=== PATIENT | female | born 1990 | race African-American/Black ===

== ENCOUNTER 2017-05-08 03:29 | Emergency (ER) | payer BC ==
[2017-05-08] MEDS ORDERED: ACETAMINOPHEN 325 MG TABLET PO ONE (04:00)
--- NOTE | 2017-05-08 04:01 | ER Document Report ---
ED GI/ - General Chief Complaint: Abdominal Pain Stated Complaint: ABDOMINAL PAIN Time Seen by Provider: 05/08/17 03:54 Notes: Patient is a 26-year-old female who comes emergency department for chief complaint of lower abdominal cramping and vaginal bleeding that started tonight. She is at about 5-6 weeks gestation by last menstrual period. She had confirmation with her primary care that she is . She denies flank pain, vomiting, fever, vaginal discharge otherwise. She denies any surgeries or daily medications. at bedside. TRAVEL OUTSIDE OF THE [place] IN LAST 30 DAYS: No - Related Data Allergies/Adverse Reactions: No Known Allergies Allergy (Unverified 05/08/17 03:36) Past Medical History - General Information source: Patient, Relative - Social History Smoking Status: Never Smoker Drug Abuse: None Lives with: Family Family History: Reviewed & Not Pertinent Patient has suicidal ideation: No Patient has homicidal ideation: No - Medical History Medical History: Negative Renal/ Medical History: Denies: Hx Peritoneal Dialysis Surgical Hx: Negative - Immunizations Immunizations up to date: Yes Hx Diphtheria, Pertussis, Tetanus Vaccination: Yes Review of Systems - Review of Systems Constitutional: No symptoms reported EENT: No symptoms reported Cardiovascular: No symptoms reported Respiratory: No symptoms reported Gastrointestinal: See HPI Genitourinary: See HPI Female Genitourinary: See HPI Musculoskeletal: No symptoms reported Skin: No symptoms reported Hematologic/Lymphatic: No symptoms reported Neurological/Psychological: No symptoms reported Physical Exam - Vital signs Vitals: Temp Pulse Resp BP Pulse Ox 98.4 F 104 H 20 138/96 H 99 05/08/17 03:30 05/08/17 03:30 05/08/17 03:30 05/08/17 03:30 05/08/17 03:30 Interpretation: Normal - General General appearance: Appears well, Alert, Anxious In distress: None - HEENT Head: Normocephalic, Atraumatic Eyes: Normal Pupils: PERRL - Respiratory Respiratory status: No respiratory distress Chest status: Nontender Breath sounds: Normal Chest palpation: Normal - Cardiovascular Rhythm: Regular. No: Tachycardia - No tachycardia on my exam Heart sounds: Normal auscultation, S1 appreciated, S2 appreciated Murmur: No - Abdominal Inspection: Normal Distension: No distension Bowel sounds: Normal Tenderness: Tender - There is mild tenderness in the lower abdomen on both sides , upper abdomen is soft and benign Organomegaly: No organomegaly - Back Back: Normal, Nontender. No: CVA tenderness - Extremities General upper extremity: Normal inspection, Nontender, Normal color, Normal ROM , Normal temperature General lower extremity: Normal inspection, Nontender, Normal color, Normal ROM , Normal temperature, Normal weight bearing. No: Severiano's sign - Neurological Neuro grossly intact: Yes Cognition: Normal Orientation: AAOx4 Vanda Coma Scale Eye Opening: Spontaneous Vanda Coma Scale Verbal: Oriented [place] Coma Scale Motor: Obeys Commands Vanda Coma Scale Total: 15 Speech: Normal Motor strength normal: LUE, RUE, LLE, RLE Sensory: Normal - Psychological Associated symptoms: Normal affect, Normal mood, Anxious - Skin Skin Temperature: Warm Skin Moisture: Dry Skin Color: Normal Course - Re-evaluation Re-evalutation: No leukocytosis, no tachycardia on my exam, no hypotension or fever. Generalized mild lower abdominal tenderness on exam. CBC shows mild anemia but no leukocytosis, hCG is elevated, urine is unremarkable. RhoGam is not indicated. Ultrasound showing living IUP with low heart rate, subchorionic bleed, no other abnormalities. Cervix is closed. Patient is not currently bleeding on my reexamination. Discussed threatened . Discussed in detail, discussed return precautions, PASTE WORKER follow-up. Patient and had a lot of questions, I answered all questions, they stated understanding and gratefulness. - Vital Signs Vital signs: Temp Pulse Resp BP Pulse Ox 98.4 F 104 H 20 138/96 H 99 05/08/17 03:30 05/08/17 03:30 05/08/17 03:30 05/08/17 03:30 05/08/17 03:30 - Laboratory Result Diagrams: 05/08/17 04:14 Laboratory results interpreted by me: 05/08/17 05/08/17 05/08/17 04:05 04:14 04:14 RBC 3.62 L Hgb 10.5 L Hct 31.8 L RDW 18.0 H Beta HCG, Quant 3268.90 H Urine Blood LARGE H Discharge - Discharge Clinical Impression: Vaginal bleeding in patient at less than 20 weeks gestation Condition: Stable Disposition: HOME, SELF-CARE Additional Instructions: Your ultrasound shows a in the uterus. However there is a subchorionic bleed and the heart rate is low. This is a threatened and it is unclear if this will progress or if you will miscarry. Your blood type is A positive. You do not need Rhogam. I recommend no significant activity, no running, jumping, lifting, sexual intercourse. I recommend simply walking as needed and mainly resting. Take Tylenol as needed for pain. Follow-up closely with PASTE WORKER. Return to emergency department for any concerning symptoms including heavy bleeding or dizziness, or if something is not right. Threatened Miscarriage You have been evaluated for a possible miscarriage. At this time, there is no indication that a miscarriage will occur. Most women with your symptoms will go on to have a perfectly normal baby. However, careful observation will be necessary. A miscarriage occurs when the fetus is abnormal. There is no medicine or treatment for it. You should rest in bed until the symptoms have resolved. Do not douche or have sex for at least a week, or until OK'd by the doctor. Call the doctor or return for re-examination if there is an increase in bleeding or cramping, or passage of tissue. Forms: Return to Work, Treatment of Relative/Child Referrals: [facility] [Provider Group] - Follow up tomorrow
[2017-05-08 04:22] LABS: APPEARANCE,URINE CLEAR; BILIRUBIN,URINE NEGATIVE (NEGATIVE); GLUCOSE, URINE NEGATIVE (NEGATIVE); KETONES,URINE NEGATIVE (NEGATIVE); LEUKOCYTE ESTERASE,URINE NEGATIVE (NEGATIVE); NITRITE,URINE NEGATIVE (NEGATIVE); PROTEIN,URINE NEGATIVE (NEGATIVE); URINE SPECIFIC GRAVITY 1.009; UROBILINOGEN,URINE NEGATIVE mg/dL (<2.0)
[2017-05-08 04:27] LABS: ABSOLUTE EOSINOPHILS # (AUTO) 0.1 10^3/uL (0.0-0.6); ABSOLUTE LYMPHOCYTES (AUTO) 1.4 10^3/uL (0.5-4.7); ABSOLUTE MONOCYTES (AUTO) 0.4 10^3/uL (0.1-1.4); ABSOLUTE NEUT (AUTO) 3.9 10^3/uL (1.7-8.2); BASOPHILS % (AUTO) 0.5 % (0-2); HEMATOCRIT 31.8 % (36.0-47.0); HEMOGLOBIN 10.5 g/dL (12.0-15.5); HGB HCT DIFFERENCE -0.3; LYMPHOCYTES % (AUTO) 23.9 % (13-45); MEAN CORPUSCULAR HEMOGLOBIN 29.1 pg (27.0-33.4); MEAN CORPUSCULAR HGB CONC 33.2 g/dL (32.0-36.0); MEAN CORPUSCULAR VOLUME 88 fl (80-97); MONOCYTES % (AUTO) 7.6 % (3-13); RED BLOOD COUNT 3.62 10^6/uL (3.72-5.28); WHITE BLOOD COUNT 5.9 10^3/uL (4.0-10.5)
--- NOTE | 2017-05-08 05:44 | RADIOLOGY REPORT (SQ) ---
EXAM DESCRIPTION: U/S OB TRANSVAG W/DOPPLER COMPLETED DATE/TIME: 05/08/2017 5:27 am REASON FOR STUDY: abd pain, vag bleeding, 1st trimester COMPARISON: None. TECHNIQUE: Transvaginal and transabdominal static and realtime grayscale images acquired of the pelv is. Additional selected spectral and color Doppler images recorded. All images stored on PACs. [facility] LIMITATIONS: None. FINDINGS: FETUS: Living intrauterine . EGA: 5 weeks 6 days ADA: 01/02/2018 FHR: 89 beats per minute beats per minute. SUBCHORIONIC BLEED: Yes. SIZE OF BLEED: 1.6 by 1.5 x 0.4 cm. UTERUS: No masses. No anomalies. CERVICAL LENGTH: 2.9 cm. Closed. RIGHT ADNEXA: Normal ovary with normal vascular flow. No adnexal free fluid. No adnexal masses. 2.5 cm. LEFT ADNEXA: Normal ovary with normal vascular flow. No adnexal free fluid. No adnexal masses. 2.4 cm. FREE FLUID: None. OTHER: No other significant finding. IMPRESSION: LIVING INTRAUTERINE , at-risk. 1.6 cm subchorionic hematoma. Consider 48-72 h our laboratory/sonographic surveillance as clinically warranted. EGA 5 weeks 6 days. Trimester of : First - 0 to 13 weeks. TECHNICAL DOCUMENTATION: JOB ID: [id number] [employer]- All Rights Reserved
[2017-05-08 07:03] VITALS: BP 128/80
== END 2017-05-08 06:40 | disposition home or self-care (01) ==
LOC: ER 03:29
DX: O46.91 Antepartum hemorrhage, unspecified, first trimester (principal); Z3A.01 Less than 8 weeks gestation of pregnancy
CPT/HCPCS: 36415; 76817; 81001; 84702; 85025; 86900; 86901; 93976; 99284

== ENCOUNTER 2019-02-19 08:09 | Emergency (ER) | payer SELFPAY ==
--- NOTE | 2019-02-19 09:35 | ER Document Report ---
ED Medical Screen (RME) - General Chief Complaint: Vag Bleeding, +preg <12wks Stated Complaint: VAGINAL BLEEDING/ABDOMINAL CRAMPING Time Seen by Provider: 02/19/19 09:30 Primary Care Provider: LATA STEPHENSON MD [Primary Care Provider] - Follow up as needed Mode of Arrival: Ambulatory Information source: Patient TRAVEL OUTSIDE OF THE [place] IN LAST 30 DAYS: No - HPI Patient complains to provider of: PREG, BLEEDING Notes: 02/19/19 09:33 Patient here with complaints of being approximately 7 to 8 weeks and having vaginal bleeding. She is a G2, P0 with one prior miscarriage. Does complain of some lower abdominal cramping and tightness. She started having bleeding yesterday. No fevers. Exam Nontoxic, no distress. Lungs clear and equal throughout. Heart sounds normal. No CVA tenderness. No focal tenderness on limited triage abdominal exam. Plan Patient has a positive blood type according to blood bank history. CBC, CMP, quantitative hCG, transvaginal ultrasound. An initial examination was made on the patient as part of the triage process, and it was determined a more comprehensive evaluation was necessary. Initial labs were ordered and patient was transferred to another provider in the ED who assumed care and finished evaluation and plan. - Related Data Allergies/Adverse Reactions: No Known Allergies Allergy (Verified 02/19/19 08:11) Past Medical History Renal/ Medical History: Denies: Hx Peritoneal Dialysis - Immunizations Immunizations up to date: Yes Hx Diphtheria, Pertussis, Tetanus Vaccination: Yes Physical Exam - Vital signs Vitals: Temp Pulse Resp BP Pulse Ox 98.4 F 98 16 138/77 H 97 02/19/19 08:14 02/19/19 08:14 02/19/19 08:14 02/19/19 08:14 02/19/19 08:14 Course - Vital Signs Vital signs: Temp Pulse Resp BP Pulse Ox 98.4 F 98 16 138/77 H 97 02/19/19 08:14 02/19/19 08:14 02/19/19 08:14 02/19/19 08:14 02/19/19 08:14 Doctor's Discharge - Discharge Referrals: LATA STEPHENSON MD [Primary Care Provider] - Follow up as needed
[2019-02-19 09:53] LABS: ABSOLUTE BASOPHILS # (AUTO) 0.1 10^3/uL (0.0-0.2); ABSOLUTE LYMPHOCYTES (AUTO) 1.1 10^3/uL (0.5-4.7); ABSOLUTE MONOCYTES (AUTO) 0.3 10^3/uL (0.1-1.4); ABSOLUTE NEUT (AUTO) 2.7 10^3/uL (1.7-8.2); BASOPHILS % (AUTO) 1.3 % (0-2); EOSINOPHILS % (AUTO) 0.9 % (0-6); HEMATOCRIT 35.3 % (36.0-47.0); HEMOGLOBIN 11.6 g/dL (12.0-15.5); LYMPHOCYTES % (AUTO) 25.8 % (13-45); MEAN CORPUSCULAR HEMOGLOBIN 28.6 pg (27.0-33.4); MEAN CORPUSCULAR HGB CONC 32.8 g/dL (32.0-36.0); MEAN CORPUSCULAR VOLUME 87 fl (80-97); MONOCYTES % (AUTO) 7.9 % (3-13); PLATELET COUNT 278 10^3/uL (150-450); RED BLOOD COUNT 4.05 10^6/uL (3.72-5.28); RED CELL DISTRIBUTION WIDTH 19.9 % (11.5-14.0); SEGMENTED NEUTROPHILS % (AUTO) 64.1 % (42-78); TOTAL CELLS COUNTED % (AUTO) 100 %; WHITE BLOOD COUNT 4.3 10^3/uL (4.0-10.5)
[2019-02-19 09:56] LABS: APPEARANCE,URINE CLEAR; BILIRUBIN,URINE NEGATIVE (NEGATIVE); COLOR,URINE YELLOW; GLUCOSE, URINE NEGATIVE (NEGATIVE); KETONES,URINE NEGATIVE (NEGATIVE); LEUKOCYTE ESTERASE,URINE NEGATIVE (NEGATIVE); NITRITE,URINE NEGATIVE (NEGATIVE); PROTEIN,URINE NEGATIVE (NEGATIVE); URINE SPECIFIC GRAVITY 1.023; UROBILINOGEN,URINE NEGATIVE mg/dL (<2.0)
[2019-02-19 10:30] LABS: ALANINE AMINOTRANSFERASE 14 U/L (9-52); ALBUMIN 4.7 g/dL (3.5-5.0); ALKALINE PHOSPHATASE 46 U/L (38-126); ANION GAP 12 (5-19); ASPARTATE AMINO TRANSFERASE 23 U/L (14-36); BILIRUBIN,DIRECT 0.3 mg/dL (0.0-0.4); BILIRUBIN,TOTAL 0.4 mg/dL (0.2-1.3); BLOOD UREA NITROGEN 9 mg/dL (7-20); CARBON DIOXIDE 23 mmol/L (22-30); CHLORIDE 106 mmol/L (98-107); GLUCOSE 82 mg/dL (75-110); POTASSIUM 3.8 mmol/L (3.6-5.0); SODIUM 140.7 mmol/L (137-145); TOTAL PROTEIN 8.5 g/dL (6.3-8.2)
--- NOTE | 2019-02-19 12:03 | RADIOLOGY REPORT (SQ) ---
EXAM DESCRIPTION: U/S OB TRANSVAG W/DOPPLER COMPLETED DATE/TIME: 02/19/2019 11:45 am REASON FOR STUDY: PREG, VAG BLEEDING COMPARISON: None. TECHNIQUE: Transvaginal static and realtime grayscale images acquired of the pelvis. Additional nando cted spectral and color Doppler images recorded. All images stored on PACs. [facility],066 CLINICAL DATES: 7 weeks 6 days LIMITATIONS: None. FINDINGS: FETUS: Single Living intrauterine . ULTRASOUND EGA: 6 weeks 5 days ULTRASOUND ADA: 10/10/2019 EFW: Not applicable less than 20 weeks. CRL: 0.80 cm. FHR: 119 beats per minute. SURVEY: Too early to assess. AMNIOTIC FLUID: Adequate amount. PLACENTA: Not yet developed due to early gestation. SUBCHORIONIC BLEED: Yes. SIZE OF BLEED: 1.2 x 1.0 x 0.4 cm. UTERUS: No masses. No anomalies. CERVICAL LENGTH: 2.3 cm. Closed. RIGHT ADNEXA: Ovary not identified due to poor acoustical window. No adnexal free fluid. No adnexal masses. LEFT ADNEXA: Ovary not identified due to poor acoustical window. No adnexal free fluid. No adnexal masses. FREE FLUID: None. OTHER: There is a prominent yolk sac. This is measured at 6.9 mm. IMPRESSION: LIVING INTRAUTERINE . EGA 6 WEEKS 5 DAYS. THE YOLK SAC IS ENLARGED WHICH CAN BE ASSOCIATED WITH INCREASED RISK OF SPONTANEOUS . RECOMM END CLINICAL AND ULTRASOUND FOLLOW-UP. Trimester of : First - 0 to 13 weeks. TECHNICAL DOCUMENTATION: JOB ID: [id number]- All Rights Reserved Reading location - IP/workstation name: [email or web address]
[2019-02-19 12:45] VITALS: BP 130/90
--- NOTE | 2019-02-19 12:59 | ER Document Report ---
Entered by PINEDA JOLLY SCRIBE 02/19/19 1223 Acting as scribe for:CHANTELLE MERINO MD ED General - General Chief Complaint: Vag Bleeding, +preg <12wks Stated Complaint: VAGINAL BLEEDING/ABDOMINAL CRAMPING Time Seen by Provider: 02/19/19 09:30 Primary Care Provider: [facility] [Provider Group] - Follow up in 3-5 days (Call today to schedule an appointment.) Mode of Arrival: Ambulatory Notes: Patient is a 28-year-old female, approximately 8 weeks () presents to the emergency department complaining of vaginal bleeding onset this morning. Patient states she noticed brownish blood when wiping. She also complains of some light abdominal cramping. She denies any blood clots. Patient's LMP was December 24, 2018. Patient is taking vitamins. She is A+. TRAVEL OUTSIDE OF THE [place] IN LAST 30 DAYS: No - Related Data Allergies/Adverse Reactions: No Known Allergies Allergy (Verified 02/19/19 08:11) Past Medical History - General Information source: Patient Last Menstrual Period: 12-26-18 - Social History Smoking Status: Never Smoker Chew tobacco use (# tins/day): No Family History: Reviewed & Not Pertinent Patient has suicidal ideation: No Patient has homicidal ideation: No - Immunizations Immunizations up to date: Yes Hx Diphtheria, Pertussis, Tetanus Vaccination: Yes Review of Systems - Review of Systems Constitutional: No symptoms reported EENT: No symptoms reported Cardiovascular: No symptoms reported Respiratory: No symptoms reported Gastrointestinal: No symptoms reported Genitourinary: No symptoms reported Female Genitourinary: See HPI, , Vaginal bleeding Musculoskeletal: No symptoms reported Skin: No symptoms reported Hematologic/Lymphatic: No symptoms reported Neurological/Psychological: No symptoms reported -: Yes All other systems reviewed and negative Physical Exam - Vital signs Vitals: Temp Pulse Resp BP Pulse Ox 98.4 F 98 16 138/77 H 97 02/19/19 08:14 02/19/19 08:14 02/19/19 08:14 02/19/19 08:14 02/19/19 08:14 - Notes Notes: GENERAL: Alert, interacts well. No acute distress. HEAD: Normocephalic, atraumatic. EYES: Pupils equal, round, and reactive to light. Extraocular movements intact. ENT: Oral mucosa moist, tongue midline NECK: Full range of motion. Supple. Trachea midline. LUNGS: No respiratory distress. EXTREMITIES: Moves all 4 extremities spontaneously. No edema. NEUROLOGICAL: Alert and oriented x3. Normal speech. PSYCH: Normal affect, normal mood. SKIN: Warm, dry, normal turgor. No rashes or lesions noted. Course - Vital Signs Vital signs: Temp Pulse Resp BP Pulse Ox 98.4 F 98 16 138/77 H 97 02/19/19 08:14 02/19/19 08:14 02/19/19 08:14 02/19/19 08:14 02/19/19 08:14 - Laboratory Result Diagrams: 02/19/19 09:41 02/19/19 09:41 Laboratory results interpreted by me: 02/19/19 02/19/19 02/19/19 09:41 09:41 09:41 Hgb 11.6 L Hct 35.3 L RDW 19.9 H Total Protein 8.5 H Beta HCG, Quant 74928.00 H Urine Ascorbic Acid 20 H - Diagnostic Test Radiology reviewed: Image reviewed, Reports reviewed - The ultrasound shows a 6- week 5-day intrauterine with heart rate of 119. There is a subchorionic bleed. The yolk sac is enlarged. Discharge - Discharge Clinical Impression: Intrauterine , Vaginal bleeding affecting early Condition: Stable Disposition: HOME, SELF-CARE Additional Instructions: Bleeding During Early You have been evaluated for passing blood while . While we take this symptom very seriously, most women with your degree of bleeding will go on to have a perfectly normal baby. At this time, there is no indication that a miscarriage will occur. (A miscarriage occurs when the fetus is abnormal. There is no medicine or treatment to prevent it.) A more serious cause of bleeding is tubal . An ultrasound can show whether the is in the uterus or in the tube. Sometimes in early , no fetus is seen. In this case, careful follow-up, including repeat blood tests and repeat ultrasound, is necessary. You should rest in bed until the symptoms have resolved. Do not douche or have sex for at least a week, or until OK'd by the doctor. Don't use tampons. Call the doctor or return for re-examination if there is an increase in bleeding or cramping, extreme weakness, fainting, new abdominal pain, fever, or passage of tissue. Bedrest, pelvic rest, drink plenty of fluids throughout the day. Call [facility] today to schedule a follow-up appointment. RETURN TO THE EMERGENCY ROOM IF ANY NEW OR WORSENING SYMPTOMS. Forms: Return to Work Referrals: [facility] [Provider Group] - Follow up in 3-5 days (Call today to schedule an appointment.) Scribe Attestation: 02/19/19 12:23 I personally performed the services described in the documentation, reviewed and edited the documentation which was dictated to the scribe in my presence, and it accurately records my words and actions. I personally performed the services described in the documentation, reviewed and edited the documentation which was dictated to the scribe in my presence, and it accurately records my words and actions.
== END 2019-02-19 12:46 | disposition home or self-care (01) ==
LOC: ER 08:09
DX: O46.91 Antepartum hemorrhage, unspecified, first trimester (principal); O26.891 Other specified pregnancy related conditions, first trimester; R10.9 Unspecified abdominal pain; Z3A.08 8 weeks gestation of pregnancy
CPT/HCPCS: 36415; 76817; 80053; 81001; 84702; 85025; 93976; 99284

== ENCOUNTER 2019-02-20 14:12 | Emergency (ER) | payer SELFPAY ==
[2019-02-20] MEDS ORDERED: NORMAL SALINE 1000 ML 1,000 ML IV ONE (14:58)
[2019-02-20] MEDS ORDERED: ACETAMINOPHEN 325 MG TABLET PO ONE ×2 (15:06→18:37)
--- NOTE | 2019-02-20 15:06 | ER Document Report ---
ED Medical Screen (RME) - General Chief Complaint: Vaginal Bleeding Stated Complaint: VAGINAL BLEEDING Time Seen by Provider: 02/20/19 14:56 Mode of Arrival: Wheelchair Information source: Patient Notes: Patient is currently 6 weeks G2, P0. Patient was here yesterday with vaginal bleeding. Patient complains of increased vaginal bleeding and pelvic pain. I have greeted and performed a rapid initial assessment of this patient. A comprehensive ED assessment and evaluation of the patient, analysis of test results and completion of the medical decision making process will be conducted by additional ED providers. TRAVEL OUTSIDE OF THE [place] IN LAST 30 DAYS: No - Related Data Allergies/Adverse Reactions: No Known Allergies Allergy (Verified 02/20/19 14:15) Past Medical History - Social History Frequency of alcohol use: None Drug Abuse: None Renal/ Medical History: Denies: Hx Peritoneal Dialysis - Immunizations Immunizations up to date: Yes Hx Diphtheria, Pertussis, Tetanus Vaccination: Yes Physical Exam - Vital signs Vitals: Temp Pulse Resp BP Pulse Ox 98.3 F 102 H 20 114/72 97 02/20/19 14:21 02/20/19 14:21 02/20/19 14:21 02/20/19 14:21 02/20/19 14:21 - Abdominal Tenderness: Tender - Lower pelvic tenderness Course - Vital Signs Vital signs: Temp Pulse Resp BP Pulse Ox 98.3 F 102 H 20 114/72 97 02/20/19 14:21 02/20/19 14:21 02/20/19 14:21 02/20/19 14:21 02/20/19 14:21
[2019-02-20 16:21] LABS: ABSOLUTE LYMPHOCYTES (AUTO) 1.4 10^3/uL (0.5-4.7); ABSOLUTE MONOCYTES (AUTO) 0.4 10^3/uL (0.1-1.4); ABSOLUTE NEUT (AUTO) 4.1 10^3/uL (1.7-8.2); BASOPHILS % (AUTO) 0.4 % (0-2); EOSINOPHILS % (AUTO) 0.4 % (0-6); HEMATOCRIT 35.3 % (36.0-47.0); HEMOGLOBIN 11.6 g/dL (12.0-15.5); LYMPHOCYTES % (AUTO) 23.4 % (13-45); MEAN CORPUSCULAR HEMOGLOBIN 28.8 pg (27.0-33.4); MEAN CORPUSCULAR VOLUME 87 fl (80-97); MONOCYTES % (AUTO) 7.1 % (3-13); PLATELET COUNT 243 10^3/uL (150-450); RED BLOOD COUNT 4.03 10^6/uL (3.72-5.28); RED CELL DISTRIBUTION WIDTH 20.5 % (11.5-14.0); SEGMENTED NEUTROPHILS % (AUTO) 68.7 % (42-78); TOTAL CELLS COUNTED % (AUTO) 100 %
--- NOTE | 2019-02-20 17:38 | ER Document Report ---
ED General - General Chief Complaint: Vaginal Bleeding Stated Complaint: VAGINAL BLEEDING Time Seen by Provider: 02/20/19 14:56 Mode of Arrival: Wheelchair Information source: Patient Notes: Patient presents emergency department with complaints of vaginal bleeding abdominal pain. Patient reports she is G2, P0. She was evaluated in the emergency department yesterday for same symptoms. Reports the symptoms became worse so she returned. She denies other symptoms such as fever vomiting emily rrhea. TRAVEL OUTSIDE OF THE [place] IN LAST 30 DAYS: No - HPI Onset: Other Quality of pain: Cramping Severity: Severe Pain Level: 4 Associated symptoms: None Exacerbated by: Denies Relieved by: Denies Similar symptoms previously: Yes Recently seen / treated by doctor: Yes - Related Data Allergies/Adverse Reactions: No Known Allergies Allergy (Verified 02/20/19 14:15) Past Medical History - General Information source: Patient Last Menstrual Period: 12/26/18 - Social History Smoking Status: Never Smoker Frequency of alcohol use: None Drug Abuse: None Family History: Reviewed & Not Pertinent Patient has suicidal ideation: No Patient has homicidal ideation: No - Medical History Medical History: Negative Renal/ Medical History: Denies: Hx Peritoneal Dialysis Surgical Hx: Negative - Immunizations Immunizations up to date: Yes Hx Diphtheria, Pertussis, Tetanus Vaccination: Yes Review of Systems - Review of Systems Notes: Review HPI for review of systems., All other systems negative Physical Exam - Vital signs Vitals: Temp Pulse Resp BP Pulse Ox 98.3 F 102 H 20 114/72 97 02/20/19 14:21 02/20/19 14:21 02/20/19 14:21 02/20/19 14:21 02/20/19 14:21 - Notes Notes: PHYSICAL EXAMINATION: GENERAL: Well-appearing and in no acute distress HEAD: Atraumatic, normocephalic. EYES: Pupils equal round , extraocular movements intact, sclera anicteric, conjunctiva are normal. ENT: nares patent, Moist mucous membranes. NECK: Normal range of motion, supple LUNGS: Respiratory rate even unlabored HEART: Regular rate ABDOMEN: reports cramping EXTREMITIES: Normal range of motion, NEUROLOGICAL: Cranial nerves grossly intact. . PSYCH: Normal mood, normal affect. SKIN: Warm, Dry, - General General appearance: Appears well, Alert, Anxious In distress: None - HEENT Head: Normocephalic Eyes: Normal Conjunctiva: Normal Extraocular movements intact: Yes Neck: Normal - Respiratory Respiratory status: No respiratory distress Breath sounds: Normal Course - Vital Signs Vital signs: Temp Pulse Resp BP Pulse Ox 98.9 F 75 16 128/78 H 100 02/20/19 18:54 02/20/19 18:54 02/20/19 18:54 02/20/19 18:54 02/20/19 18:54 - Laboratory Result Diagrams: 02/20/19 15:58 Laboratory results interpreted by me: 02/20/19 02/20/19 15:58 15:58 Hgb 11.6 L Hct 35.3 L RDW 20.5 H Beta HCG, Quant 4130.40 H - Diagnostic Test Radiology reviewed: Image reviewed, Reports reviewed - TECHNIQUE: Transvaginal static and realtime grayscale images acquired of the pelvis. Additional selected spectral and color Doppler images recorded. All images stored on PACs. [facility],130. Was 11,066 yesterday. CLINICAL DATES: LMP 12/26/2018. 8 weeks 0 days LIMITATIONS: None. FINDINGS: Sonographic imaging shows no intrauterine gestation at this time. The endometrium is thickened and heterogeneous. UTERUS: No masses or anomalies. 10.1 x 5.6 x 5 cm. CERVICAL LENGTH: 3.2 cm. Closed. RIGHT ADNEXA: Normal ovary. 2.5 x 1.6 x 1.7 cm. There is a 13 mm cyst. No adnexal free fluid. No adnexal masses. LEFT ADNEXA: Normal ovary. 2.2 x 2.4 x 1.1 cm. No adnexal free fluid. No adnexal masses. FREE FLUID: None. OTHER: No other significant finding. IMPRESSION: No intrauterine gestation is seen. Decreasing HCG. Thickened, heterogeneous endometrium. Likely incomplete miscarriage Discharge - Discharge Clinical Impression: Incomplete miscarriage Condition: Stable Disposition: HOME, SELF-CARE Instructions: Miscarriage ([facility]), [facility] Additional Instructions: *You have been evaluated for vaginal bleeding ,miscarriage *Follow up with your DIMENSIONAL INSPECTOR or the health department for recheck within one week for recheck *Avoid sexual intercourse until follow up *Return to ED for worsening condition, changes, needs Forms: Parent Work Note, Return to Work
--- NOTE | 2019-02-20 17:51 | RADIOLOGY REPORT (SQ) ---
EXAM DESCRIPTION: U/S OB TRANSVAGINAL W/O DOP COMPLETED DATE/TIME: 02/20/2019 5:29 pm REASON FOR STUDY: vag bleeding COMPARISON: None. TECHNIQUE: Transvaginal static and realtime grayscale images acquired of the pelvis. Additional nando cted spectral and color Doppler images recorded. All images stored on PACs. [facility],130. Was 11,066 yesterday. CLINICAL DATES: LMP 12/26/2018. 8 weeks 0 days LIMITATIONS: None. FINDINGS: Sonographic imaging shows no intrauterine gestation at this time. The endometrium is thic kened and heterogeneous. UTERUS: No masses or anomalies. 10.1 x 5.6 x 5 cm. CERVICAL LENGTH: 3.2 cm. Closed. RIGHT ADNEXA: Normal ovary. 2.5 x 1.6 x 1.7 cm. There is a 13 mm cyst. No adnexal free fluid. No adnexal masses. LEFT ADNEXA: Normal ovary. 2.2 x 2.4 x 1.1 cm. No adnexal free fluid. No adnexal masses. FREE FLUID: None. OTHER: No other significant finding. IMPRESSION: No intrauterine gestation is seen. Decreasing HCG. Thickened, heterogeneous endometriu m. Likely incomplete miscarriage. TECHNICAL DOCUMENTATION: JOB ID: [id number] [employer]- All Rights Reserved rev-02/15 Reading location - IP/workstation name: [email or web address]
[2019-02-20 18:55] VITALS: BP 128/78
== END 2019-02-20 18:58 | disposition home or self-care (01) ==
LOC: ER 14:12
DX: O03.4 Incomplete spontaneous abortion without complication (principal)
CPT/HCPCS: 99284; 96360; 36415; 84702; 85025; 76817; J7030